=== PATIENT | male | born 1990 | race Caucasian/White ===

== ENCOUNTER 2024-11-09 17:45 | Emergency (ER) | payer MEDICAID ==
[~2024-11-09] VITALS: Ht 175.3 cm; Wt 70.0 kg
[2024-11-09 17:52] VITALS: BP 132/56; PULSE 98; RESP 18; O2SAT 98
== END 2024-11-09 18:00 | disposition home or self-care (01) ==
LOC: ER 17:55
DX: S09.90XA Unspecified injury of head, initial encounter (principal); X58.XXXA Exposure to other specified factors, initial encounter; Y93.89 Activity, other specified; Y92.89 Other specified places as the place of occurrence of the external cause; Y99.8 Other external cause status